=== PATIENT | female | born 1965 | race Caucasian/White ===

== ENCOUNTER 2019-07-25 07:12 | Emergency (ER) | payer SELFPAY ==
[2019-07-25 07:15] VITALS: BP 204/97; PULSE 77; RESP 18; TEMP 36.2; O2SAT 99
--- NOTE | 2019-07-25 07:26 | ED_ITS ---
HPI - Neuro Symptoms/Deficit General Chief Complaint: Suspected CVA Stated Complaint: Possible stroke Source: EMS Mode of arrival: EMS Limitations: altered mental status and clinical condition History of Present Illness HPI Narrative: Ms. Trujillo is a 67 year old woman who arrives by EMS. She is aphasic and unable to provide history. EMS reports that family found her on the ground this AM. EMS reports that she was described as last normal around bedtime last night which was estimated to be 11PM by EMS. Facial droop, weakness and aphasia are immediately apparent and STAT Stroke protocol was initiated. Review of Systems Review of Systems: ROS unobtainable: unobtainable due to mental status Exam Const: Nutritional Appearance: obese Limitations: altered mental status HENMT: Head: normal to inspection, no contusions and no lacerations Ears: EAC's normal General nose exam: nares normal, no nasal discharge noted and no epistaxis Other: right sided facial droop noted Eyes: Pupils: PERRL Other: drooping of right lid Neck: Neck: normal visual inspection and no lymphadenopathy Resp: Effort & Inspection: normal respiratory effort, not labored and no use of accessory muscles Auscultation: clear to auscultation bilaterally, no crackles, no rales, no rhonchi and no wheezes Cardio: Rate: regular rate Rhythm: regular rhythm GI: Inspection: non-distended GI Palp: Yes soft Auscultation: normal bowel sounds Skin: General skin exam: normal color Rashes: no rashes Wounds: no wounds Neuro: General: moves all extremities Speech: speech abnormal Other: wea kness on the right side is noted; mumbled sounds produced; no meaning full speach produced. Does attempt to obey commands. Extrem: General: normal to inspection, no clubbing, cyanosis or edema and no pedal edema Psych: Attitude: cooperative Course Course Emergency Course: Primary survey revealed a hypertensive woman with aphasia, facial droop and right sided weakness. STAT stroke protocol initiated. Patient to CT. Labs, EKG and CXR ordered. It is reported that patient was last seen normal around 11pm. This represents about 8 hours since last normal. 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 This likely places patient outside of TPA window. Staff is arranging neuro consult as per protocol. NIH Stroke Scale was employed. Given the dramatic aphasia certain elements are hard to assess. 11 points given. Case discussed with [facility] access line. Awaiting callback from Neurology. Reevaluation(s) Reevaluation #1: Grand-Daughter Belkis arrives. SHe reports that a grandson Snehal saw patient at 2am. At that time, she walked through the living room to the bathroom and then back. Patient's condition remains unchanged. Awaiting callback from Neurology. Time: 07:55 Reevaluation #2: It was learned that this chart was initiated under the wrong patient name. Therefore, a second chart was initiated under the appropriate name. Charting continues on that chart.
--- NOTE | 2019-07-25 08:56 | PC.NURSE ---
This is wrong pt. that was registered, needs deleted.
== END 2019-07-25 08:55 | disposition left against medical advice (07) ==
PROVIDERS: Emergency Provider Family Medicine
DX: Z53.8 Procedure and treatment not carried out for other reasons (principal)
CPT/HCPCS: 70450; 71045; 99199